=== PATIENT | male | born 1950 | race Caucasian/White ===

== ENCOUNTER 2019-08-06 05:14 | Day surgery (SDC) | payer MEDICARE, BC ==
[2019-08-05 10:43] LABS: HEMATOCRIT 42.9 % (42.0-54.0); HEMOGLOBIN 14.3 g/dL (13.5-17.5); MCH 32.6 pg (26.0-34.0); MCHC 33.3 g/dL (31.0-37.0); MCV 97.9 fL (80.0-100.0); MEAN PLATELET VOLUME 9.8 fL (7.4-10.4); RBC 4.38 10x6/uL (4.20-6.10); RDW 12.9 % (11.5-14.5); WBC 5.3 10x3/uL (4.8-10.8)
[2019-08-05 11:05] LABS: CALCIUM 9.1 mg/dL (8.5-10.1); CARBON DIOXIDE 27.8 mmol/L (21.0-32.0); CREATININE - SERUM 1.6 mg/dL (0.6-1.3); POTASSIUM - SERUM 4.8 mmol/L (3.5-5.1)
[~2019-08-06] VITALS: Ht 185.4 cm; Wt 88.5 kg
--- NOTE | ~2019-08-06 | OP ---
PATIENT NAME: ENDY CHRIS MEDICAL RECORD: [id number] :50 LOCATION:[facility] ADMISSION DATE: SURGEON: KARYN HYDE DPM DATE OF OPERATION: 08/06/2019 PREOPERATIVE DIAGNOSES: 1. Left second interspace neuroma. 2. Left second Hammertoe proximal interphalangeal joint. POSTOPERATIVE DIAGNOSES: 1. Left second interspace neuroma. 2. Left second Hammertoe proximal interphalangeal joint. PROCEDURES: 1. Left second interspace neurectomy. 2. Left second PIPJ fusion. ANESTHESIA: General with local infiltrate utilizing lidocaine and Marcaine plain around the first and second ray of the left foot. HEMOSTASIS: Left ankle tourniquet at 250 mmHg. PREOPERATIVE DETAILS: The patient was taken to the OR and placed on the operating table in a supine position followed by induction of general anesthesia and infiltration of local anesthetic 18 cc total. The procedures to be performed are being done due to the fact that the patient was having significant and severe pain in the left foot involving the common digital nerve of the left second interspace as well as painful hammer toe. This condition has been going on for several months for which conservative treatment has failed. The left extremity was prepped and draped in usual aseptic technique followed by exsanguination and inflation of tourniquet. PROCEDURE #1: Left second interspace neurectomy. A 15-blade was used to create a 3 cm linear incision over the second interspace. The incision was deepened down through the subcutaneous tissue through the intermetatarsal ligament, which was transected. It was noted that the second and third metatarsals were very closely approximated and very difficult to separate. With distraction of the metatarsals, I was able to gain enough space in order to visualize the nerve and transected at the base of the second digit and the third digit and then dissected proximally up underneath the floor of the foot and transected, it was removed and sent to pathology. After careful inspection of the floor of the second interspace, there was no other nerve tissue that could be seen. The wound was flushed. The subcutaneous tissue was reapproximated with 4-0 Rapide and the skin was closed with 4-0 Rapide in a subcuticular technique. PROCEDURE #2: Left second PIPJ fusion. Two elliptical incisions were made transversely over the PIPJ of the left second digit. The skin wedge was removed. The extensor longus tendon was transected giving exposure to the head of the proximal phalanx and the base of middle phalanx. Sagittal saw was used to resect both. A drill hole was made in both utilizing the hammer tube instrumentation, the graft was placed in the proximal phalanx first and the capital fragment was placed on top of the hammer tube and the fusion site was compressed. Excellent alignment was noted as well as approximation of the fusion site. Wound was flushed. The extensor longus tendon was reapproximated with 4-0 Rapide and the skin was closed with 4-0 Rapide in a simple interrupted OPERATIVE REPORT [id number] ENDY CHRIS technique. Adaptic, 4 x 4s and Conform were used to dress the wounds followed by Kerlix and an Samuel wrap. Tourniquet was deflated. POSTOPERATIVE DETAILS: The patient tolerated the procedure well and left the OR with vital signs stable and vascular status at preoperative levels. The patient was transported to recovery per anesthesia in stable condition. TRANSINT:[id number] Voice Confirmation ID: [id number] DOCUMENT ID: [id number] KARYN HYDE DPM CC: [id number] DICTATION DATE: 08/06/19811 ENTERTAINMENT USHER: 08/06/19 0905 REG [facility] [address] [id number]
[~2019-08-06 05:14] MED LIST: LONITEN2.5 MG PO; LUNESTA2 M1 PO; TORSEMIDE20 MG PO
[2019-08-06 06:04] VITALS: BP 134/76; Ht 185.4 cm; Wt 88.5 kg
--- NOTE | 2019-08-06 09:31 | NUR ---
0920-REMOVED IV WITH CATH INTACT,DISPOSED INTO SHARPS,COVERED WITH GUAZE,SECURED WITH MEDIPORE TAPE. VERY PLEASANT WITHOUT COMPLAINTS. VSS. DRESSING CDI. ABLE TO WIGGLE DIGITS,CAP REFILL WNL. FOOT WARM TO TOUCH WITH PALPABLE REGULAR STRONG PULSE.
--- NOTE | 2019-08-06 09:33 | NUR ---
0925-PT DRESSED. REVIEWED POST OPERATIVE INSTRUCTIONS AND 1 WK FOLLOW UP. REVIEWED PRESCRIPTION TO FILL. VERBALIZED UNDERSTANDING.
--- NOTE | 2019-08-06 09:33 | NUR ---
0928-ESCORTED OUT VIA W/C WITH SPOUSE AWAITING TO DRIVE HOME.
== END 2019-08-06 09:28 | disposition home or self-care (01) ==
LOC: D.OPS 05:14 → D.PAN 07:00 → D.OPS 07:00
PROVIDERS: Anesthesiology; ATTEND Podiatrist
DX: G57.62 Lesion of plantar nerve, left lower limb (principal); M20.42 Other hammer toe(s) (acquired), left foot; I10 Essential (primary) hypertension